=== PATIENT | female | born 1965 | race African-American/Black ===

== ENCOUNTER 2017-11-23 13:09 | Emergency (ER) | payer MEDICAID ==
[~2017-11-23] VITALS: Ht 167.6 cm; Wt 80.0 kg
[2017-11-23 15:10] LABS: BASOPHILS % 0.4 % (0.0-2.0); EOSINOPHILS % 1.4 % (0.0-5.0); HEMATOCRIT. 40.9 % (36.0-48.0); HEMOGLOBIN. 13.7 g/dL (12.0-16.0); LYMPHOCYTES % 29.2 % (20.0-50.0); MEAN CORPUSCULAR VOLUME 95.6 fL (81.0-99.0); MONOCYTES % 6.4 % (2.0-8.0); NEUTROPHILS % 62.6 % (40.0-76.0); PLATELET 294 x1000/uL (130-400); RED BLOOD CELL COUNT 4.28 mill/uL (4.2-5.4); RED CELL DISTRIBUTION WIDTH 13.4 % (11.6-14.6)
[2017-11-23 15:14] LABS: CHLORIDE 110 mEq/L (98-107)
[2017-11-23] MEDS ORDERED: SODIUM CHLORIDE 0.9% 1,000 ML IV ONE (15:20)
[2017-11-23] MEDS ORDERED: FAMOTIDINE 20MG/2ML VIAL IV STA (15:20)
[2017-11-23] MEDS ORDERED: VISCOUS LIDOCAINE 2% 15 ML UDC PO STA (15:20)
[2017-11-23] MEDS ORDERED: MAGNESIUM/ALUMINUM HYDROXIDE/SIMETHICONE 30ML UDC PO STA (15:20)
[2017-11-23] MEDS ORDERED: ONDANSETRON HCL 4MG/2ML VIAL IV STA (15:20)
[2017-11-23 15:28] LABS: HCG SCREEN NEGATIVE
[2017-11-23 16:07] LABS: CLARITY URINE CLEAR (CLEAR); COLOR URINE YELLOW (YELLOW); KETONES URINE 1+ (NEGATIVE); LEUKOCYTE ESTERASE URINE NEGATIVE (NEGATIVE); NITRITE URINE NEGATIVE (NEGATIVE); OCCULT BLOOD URINE NEGATIVE (NEGATIVE); PH URINE 5.5 (4.5-8.0); PROTEIN URINE 1+ (NEGATIVE); SPECIFIC GRAVITY URINE 1.037 (1.005-1.030)
[2017-11-23 18:13] VITALS: BP 105/64
== END 2017-11-23 18:15 | disposition home or self-care (01) ==
LOC: ER 13:09
DX: R11.2 Nausea with vomiting, unspecified (principal); J02.9 Acute pharyngitis, unspecified; K21.9 Gastro-esophageal reflux disease without esophagitis
CPT/HCPCS: 36415; 80053; 81003; 83690; 84703; 85025; 85610; 87070; 87430; 96361; 96374; 96375; 99284; J2405; J3490; J7030

== ENCOUNTER 2020-08-31 13:27 | Emergency (ER) | payer MEDICAID ==
[~2020-08-31] VITALS: Ht 162.6 cm; Wt 54.0 kg
[2020-08-31 15:01] LABS: CLARITY URINE CLEAR (CLEAR); COLOR URINE YELLOW (YELLOW); KETONES URINE NEGATIVE (NEGATIVE); LEUKOCYTE ESTERASE URINE NEGATIVE (NEGATIVE); NITRITE URINE NEGATIVE (NEGATIVE); OCCULT BLOOD URINE NEGATIVE (NEGATIVE); PROTEIN URINE NEGATIVE (NEGATIVE); SPECIFIC GRAVITY URINE 1.016 (1.005-1.030); UROBILINOGEN URINE 0.2 E.U./dL (0.2-1.0)
[2020-08-31] MEDS ORDERED: METRONIDAZOLE 500MG TABLET PO ONE (15:45)
[2020-08-31] MEDS ORDERED: AZITHROMYCIN 500 MG TABLET PO ONE (15:45)
[2020-08-31] MEDS ORDERED: CEFTRIAXONE SODIUM 500 MG/VIAL IM ONE (15:45)
[2020-08-31] MEDS ORDERED: LIDOCAINE HCL 1% 20ML VIAL (Pyxis) INJ INFIL ONE (15:45)
[2020-08-31] MEDS ORDERED: METR500T MT (15:49)
[2020-08-31 16:08] VITALS: BP 135/81
[2020-09-02 08:08] LABS: NEISSERIA GONORRHOEAE NAA Negative (Negative)
== END 2020-08-31 16:11 | disposition home or self-care (01) ==
LOC: ER 13:27
DX: A59.9 Trichomoniasis, unspecified (principal); Z20.2 Contact with and (suspected) exposure to infections with a predominantly sexual mode of transmission; Z98.890 Other specified postprocedural states
CPT/HCPCS: 81003; 81025; 87210; 87491; 87591; 96372; 99284; J0696; J3490

== ENCOUNTER 2024-01-22 11:49 | Emergency (ER) | payer MEDICAID ==
[~2024-01-22] VITALS: Ht 162.6 cm; Wt 60.0 kg
[~2024-01-22 11:49] MED LIST: METR500T MT
[2024-01-22 11:52] VITALS: O2SAT 97
[2024-01-22] MEDS ORDERED: KETOROLAC 30MG/ML VIAL IV ONE (12:30)
[2024-01-22 12:33] LABS: BASOPHILS % 0.5 % (0.0-2.0); EOSINOPHILS % 1.5 % (0.0-5.0); HEMATOCRIT. 39.9 % (36.0-48.0); HEMOGLOBIN. 12.8 g/dL (12.0-16.0); LYMPHOCYTES % 17.5 % (20.0-50.0); MEAN CORPUSCULAR HEMOGLOBIN 30.7 pg (28.0-32.0); MEAN CORPUSCULAR HGB CONC 32.1 g/dL (31.0-37.0); MEAN CORPUSCULAR VOLUME 95.5 fL (81.0-99.0); MEAN PLATELET VOLUME 7.6 fl (7.4-10.4); MONOCYTES % 6.5 % (2.0-8.0); PLATELET 254 x1000/uL (130-400); RED BLOOD CELL COUNT 4.18 mill/uL (4.2-5.4); RED CELL DISTRIBUTION WIDTH 13.9 % (11.6-14.6); WHITE BLOOD COUNT 10.8 x1000/uL (4.5-11.0)
[2024-01-22 12:43] LABS: CHLORIDE 108 mEq/L (98-107); POTASSIUM 4.2 mEq/L (3.5-5.1); SODIUM 140 mEq/L (136-145)
[2024-01-22] MEDS: ONDANSETRON HCL 4MG/2ML INJ IV ONE (12:43)
[2024-01-22 12:44] LABS: CARBON DIOXIDE 29 mEq/L (21-32)
[2024-01-22 12:49] LABS: CREATININE 0.8 mg/dL (0.6-1.0); GLUCOSE 80 mg/dL (70-105); UREA NITROGEN BLOOD 12 mg/dL (9-23)
[2024-01-22 12:51] LABS: ALANINE AMINOTRANSFERASE 14 IU/L (10-49); ALBUMIN 4.4 g/dL (3.2-4.8); ASPARTATE AMINOTRANSFERASE 23 IU/L (<34); BILIRUBIN DIRECT 0.1 mg/dL (<=3.0); BILIRUBIN TOTAL 0.4 mg/dL (0.1-1.0); TROPONIN I HIGH SENSITIVITY 6 ng/L (3.0-34)
[2024-01-22 12:52] LABS: PROTEIN TOTAL 6.7 g/dL (6.0-8.3)
[2024-01-22 12:54] LABS: INR 0.9; PROTHROMBIN TIME 10.3 sec (9.6-11.0)
[2024-01-22] MEDS: KETOROLAC 30MG/ML VIAL IV NR (14:41)
[2024-01-22] MEDS ORDERED: LIDO700A30 TP (15:46)
[2024-01-22] MEDS ORDERED: IBUP-2029 MT (15:46)
[2024-01-22 16:20] VITALS: BP 100/51; PULSE 61; RESP 18; TEMP 36.66960; O2SAT 97
== END 2024-01-22 16:33 | disposition home or self-care (01) ==
LOC: ER 12:42
DX: K52.9 Noninfective gastroenteritis and colitis, unspecified (principal); R07.89 Other chest pain
CPT/HCPCS: 99285; 74176; 96374; 76700; 71045; 80076; 80048; 83880; 83690; 85025; 85610; 84484; 36415; 93005; J1885; J2405